=== PATIENT | female | born 2000 | race Caucasian/White ===

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

== ENCOUNTER 2019-09-07 11:15 | Observation (INO) | payer MEDICAID ==
[2019-09-08] MEDS ORDERED: PREN-96 PO (13:59)
== END 2019-09-07 13:35 | disposition home or self-care (01) | DRG 566 ==
LOC: LDRP 11:15
PROVIDERS: ADMIT Specialist; ATTEND Specialist
DX: O24.410 Gestational diabetes mellitus in pregnancy, diet controlled (principal); Z3A.37 37 weeks gestation of pregnancy
CPT/HCPCS: 51702; 59025; 81002; 82948; 82962; G0378

== ENCOUNTER 2019-09-14 11:36 | Observation (INO) | payer MEDICAID ==
[~2019-09-14 11:36] MED LIST: PREN-96 PO
== END 2019-09-14 12:50 | disposition home or self-care (01) | DRG 566 ==
LOC: LDRP 11:36
PROVIDERS: ADMIT Obstetrics & Gynecology; ATTEND Obstetrics & Gynecology
DX: O24.419 Gestational diabetes mellitus in pregnancy, unspecified control (principal); O36.8330 Maternal care for abnormalities of the fetal heart rate or rhythm, third trimester, not applicable or unspecified; Z3A.38 38 weeks gestation of pregnancy
CPT/HCPCS: 59025; 76818; 81002; 82948; 82962; G0378

== ENCOUNTER 2019-09-21 11:54 | Observation (INO) | payer MEDICAID | END 2019-09-21 14:00 | disposition home or self-care (01) | DRG 566 | LOC: LDRP 11:54 | PROVIDERS: ADMIT Obstetrics & Gynecology; ATTEND Obstetrics & Gynecology | DX: O24.410 Gestational diabetes mellitus in pregnancy, diet controlled (principal); Z3A.39 39 weeks gestation of pregnancy | CPT/HCPCS: 59025; 76818; 81002; 82948; 82962; G0378 ==

== ENCOUNTER 2019-09-28 19:00 | Inpatient (IN) | payer MEDICAID ==
[~2019-09-28] VITALS: Ht 162.6 cm; Wt 114.3 kg
[2019-09-28] MEDS ORDERED: LACT. RINGERS/OXYTOCIN 20UNITS 1,000 ML IV SCH (19:06)
[2019-09-28] MEDS ORDERED: LIDOCAINE 2%HCL (LOCAL ANESTH.) INJ 20ML MDV IJ ONE (19:15)
[2019-09-28] MEDS ORDERED: METHYLERGONOVINE MALEATE 0.2 MG/ML AMP IM PRN (19:15)
[2019-09-28] MEDS ORDERED: PENICILLIN G POT 5MIL/D5 50ML 50 ML IV ONE (19:15)
[2019-09-28] MEDS ORDERED: PHISODERM TOP SOLN 240ML BTL TOP PRN (19:15)
[2019-09-28 20:06] LABS: Basophils # (auto) 0 uL; Basophils % (auto) 0.3 % (0.0-2.0); Eosinophils # (auto) 0.1 uL; Monocytes # (auto) 0.9 uL; Nucleated Red Blood Cells % 0.1 %
[2019-09-28 20:07] LABS: Urine Bacteria FEW /hpf (None Seen); Urine Blood 1+ /uL (Negative); Urine Mucus FEW (None Seen); Urine WBC 5 /hpf (0 - 5)
[2019-09-28 20:08] LABS: Eosinophils % (auto) 0.7 % (0.0-7.0); Hematocrit 25.4 % (36.0-46.0); Hemoglobin 8.1 g/dL (12.2-16.2); Lymphocytes # (auto) 1.8 uL; Lymphocytes % (auto) 13.6 % (10.0-50.0); Mean Corpuscular Hemoglobin 22.9 pg (28.0-32.0); Mean Corpuscular Hgb Conc. 31.7 g/dL (32.0-36.0); Mean Corpuscular Volume 72.2 fL (80.0-100.0); Monocytes % (auto) 6.8 % (0.0-12.0); Neutrophils # (auto) 10.3 uL; Neutrophils % (auto) 78.6 % (37.0-80.0); Platelet Count (auto) 272 10^3/uL (140-450); Red Blood Cells 3.52 10^6/uL (4.0-5.20); Red Cell Distribution Width 17.1 % (11.8-14.3); White Blood Cell 13.1 10^3/uL (4.4-10.8)
[2019-09-28 20:20] LABS: INR 0.91 (0.9-1.15); Partial Thromboplastin Time 26.7 sec (23.64-32.05)
[2019-09-28 20:28] LABS: Albumin 2.4 g/dL (3.4-5.0); BUN/Creatinine Ratio 11.7; Calcium 8.4 mg/dL (8.5-10.1); Potassium 3.3 mmol/L (3.5-5.1)
[2019-09-28 20:31] LABS: Bilirubin, Total 0.4 mg/dL (0.2-1.0); Total Protein 6.7 g/dL (6.4-8.2)
[2019-09-28] MEDS: LACTATED RINGER'S 1,000 ML IV SCH (20:52)
[2019-09-29] MEDS: PENICILLIN G POTASSIUM 2,500,000 UNITS in D5W 5% 50 ML IV SCH ×3 (00:46→09:30)
[2019-09-29] MEDS: LACTATED RINGER'S 1,000 ML IV SCH ×2 (04:50→11:14)
[2019-09-29] MEDS ORDERED: PROMETHAZINE HCL 25 MG/ML 1ML IV PRN (10:30)
[2019-09-29] MEDS ORDERED: ePHEDrine SULFATE 50 MG/ML AMP ONE (13:29)
[2019-09-29] MEDS ORDERED: fentaNYL W ROPIVACAINE 150 ML EPI ONE (13:29)
[2019-09-29] MEDS ORDERED: BUTORPHANOL TARTRATE 2 MG/1 ML VIAL IV ONE (14:00)
[2019-09-29] MEDS ORDERED: PENICILLIN G POT 5MILLION UNIT VIAL ONE (16:17)
[2019-09-29] MEDS ORDERED: IBUPROFEN 600 MG TAB PO PRN (19:15)
[2019-09-29] MEDS: WITCH HAZEL-GLYCERIN PAD TOP PRN (20:05)
[2019-09-29] MEDS: DERMOPLAST 60ML BOTTLE TOP PRN (20:05)
[2019-09-29] MEDS ORDERED: AMMONIA 0.33 ML INHALANT IN ONE ×2 (21:08→21:30)
[2019-09-29 23:27] VITALS: BP 122/66
--- NOTE | 2019-09-30 01:45 | NUR ---
Received rport from JOVITA Pierson and assumed care of female pt
[2019-09-30 03:00] VITALS: BP 122/63
[2019-09-30 07:00] VITALS: BP 129/65
[2019-09-30 07:06] LABS: RPR Non Reactive (Non Reactive)
[2019-09-30] MEDS ORDERED: INFLUENZA QUAD 2019-2020 0.5ml SYRG IM SCH (08:00)
[2019-09-30] MEDS: DOCUSATE CALCIUM 240 MG CAP PO SCH (09:36)
[2019-09-30 11:30] VITALS: BP 122/65
[2019-09-30 15:00] VITALS: BP 125/74
[2019-09-30 23:00] VITALS: BP 109/61
--- NOTE | 2019-10-01 06:20 | NUR ---
Report received from Ja Alamo RN on stable pt. Assumed care. Addendum: 10/01/19 at 0637 by Nicole Mora RN Amended: Links added.
[2019-10-01 07:08] VITALS: BP 97/55
--- NOTE | 2019-10-01 07:50 | NUR ---
Dr. Mcdaniel makes rounds with this RN. Dr. Mcdaniel informed of recent VS, lab values, and pt states that when she stands her left foot swells up and gets tingly, but there is no pain and Anusha sign is negative. Edema noted bilaterally in both lower extremities, pt educated on elevating legs while in bed. Orders received for d/c home and to follow-up with Dr. Mcdaniel in 2 weeks, pt to continue taking Iron and PNV as directed, and pt to receive Potassium tablet 40 meq PO once prior to d/c home.
[2019-10-01] MEDS ORDERED: POTASSIUM CHL 20 Meq TABLET PO ONE (08:15)
[2019-10-01] MEDS: WITCH HAZEL-GLYCERIN PAD TOP PRN (08:38)
[2019-10-01] MEDS: DERMOPLAST 60ML BOTTLE TOP PRN (08:38)
[2019-10-01] MEDS: DOCUSATE CALCIUM 240 MG CAP PO SCH (09:50)
--- NOTE | 2019-10-01 10:20 | NUR ---
Discharge: Discharge instructions given as ordered. Pt encouraged to follow up with [facility]IA[facility] as instructed. All questions and concerns addressed. Patient verbalized understanding. Medication reconciliation completed and copy given to patient. All required/requested vaccines given and copies of vaccinations given to patient. Patient encouraged to prepare to depart unit.
[2019-10-01 11:02] VITALS: BP 114/63
--- NOTE | 2019-10-01 11:32 | NUR ---
Discharge: Patient ambulated with steady gait to vehicle, with all personal belongings, accompanied by staff and family member. No distress noted at time of departure, no adverse changes in status since initial assessment.
== END 2019-10-01 11:32 | disposition home or self-care (01) | DRG 560 ==
LOC: LDRP 19:00
PROVIDERS: ADMIT Obstetrics & Gynecology; ATTEND Obstetrics & Gynecology
PROC: 10E0XZZ Delivery of Products of Conception, External Approach (ICD-10-PCS; principal; 2019-09-29)
PROC: 0W8NXZZ Division of Female Perineum, External Approach (ICD-10-PCS; 2019-09-29)
PROC: 3E0R3BZ Introduction of Anesthetic Agent into Spinal Canal, Percutaneous Approach (ICD-10-PCS; 2019-09-29)
PROC: 00HU33Z Insertion of Infusion Device into Spinal Canal, Percutaneous Approach (ICD-10-PCS; 2019-09-29)
DX: O99.824 Streptococcus B carrier state complicating childbirth (principal); O24.420 Gestational diabetes mellitus in childbirth, diet controlled; J45.909 Unspecified asthma, uncomplicated; O36.63X0 Maternal care for excessive fetal growth, third trimester, not applicable or unspecified; O99.52 Diseases of the respiratory system complicating childbirth; O69.81X0 Labor and delivery complicated by cord around neck, without compression, not applicable or unspecified; Z3A.40 40 weeks gestation of pregnancy; Z37.0 Single live birth
CPT/HCPCS: 36415; 51702; 59025; 59409; 62282; 80053; 81001; 82948; 82962; 84112; 85025; 85610; 85730; 86592; 86850; 86900; 86901; 96365; 96366; 96372; 96374; G0378; J2540; J2590; J3010; J7060

== ENCOUNTER 2021-07-30 10:40 | Observation (INO) | payer MEDICAID ==
[~2021-07-30] VITALS: Ht 160 cm; Wt 101.2 kg
[2021-07-30 11:14] LABS: Basophils # (auto) 0.1 10 ^3/uL (0-0.2); Hemoglobin 7.4 g/dL (12.2-16.2); Nucleated Red Blood Cells % 0.1 %
[2021-07-30 11:16] LABS: Basophils % (auto) 0.7 % (0.0-2.0); Eosinophils # (auto) 0.1 10 ^3/uL (0-0.8); Eosinophils % (auto) 1.3 % (0.0-7.0); Hematocrit 22.9 % (36.0-46.0); Lymphocytes % (auto) 18.6 % (10.0-50.0); Mean Corpuscular Hemoglobin 22.1 pg (28.0-32.0); Mean Corpuscular Hgb Conc. 32.3 g/dL (32.0-36.0); Mean Corpuscular Volume 68.3 fL (80.0-100.0); Monocytes # (auto) 0.6 10 ^3/uL (0-1.3); Monocytes % (auto) 5.6 % (0.0-12.0); Neutrophils % (auto) 73.8 % (37.0-80.0); Red Blood Cells 3.35 10^6/uL (4.0-5.20); White Blood Cell 10.8 10^3/uL (4.4-10.8)
[2021-07-30 12:58] VITALS: BP 104/58
[2021-07-30 13:14] VITALS: BP 106/51
[2021-07-30] MEDS ORDERED: NIFEdipine 10 MG CAP PO ONE (13:20)
[2021-07-30] MEDS ORDERED: BETAMETHASONE ACET (30mg/5ml) 5ml Vial 6mg/ml IM ONE (13:30)
[2021-07-30] MEDS ORDERED: FERR-7 PO (15:31)
[2021-07-30 15:55] VITALS: BP 112/61
[2021-07-31 05:08] LABS: RPR Non Reactive (Non Reactive)
[2021-07-31] MEDS ORDERED: ALBU108A5 IN ×2 (19:37)
== END 2021-07-30 17:00 | disposition home or self-care (01) ==
LOC: LDRP 10:40
PROVIDERS: ADMIT Obstetrics & Gynecology; ATTEND Obstetrics & Gynecology
DX: O99.013 Anemia complicating pregnancy, third trimester (principal); O60.03 Preterm labor without delivery, third trimester; D64.9 Anemia, unspecified; Z3A.35 35 weeks gestation of pregnancy
CPT/HCPCS: 36415; 36430; 59025; 76815; 81002; 82948; 82962; 83036; 85025; 86592; 86850; 86900; 86901; 86920; 94760; 96372; G0378; G0379; J0702; J7050; P9016

== ENCOUNTER 2021-07-31 19:19 | Observation (INO) | payer MEDICAID ==
[~2021-07-31] VITALS: Ht 30.5 cm; Wt 0.5 kg
[~2021-07-31 19:19] MED LIST changes: +FERR-7 PO
[2021-07-31] MEDS ORDERED: BETAMETHASONE ACET (30mg/5ml) 5ml Vial 6mg/ml IM ONE (19:30)
[2021-07-31] MEDS ORDERED: ALBU108A5 IN ×2 (19:37)
[2021-07-31 19:57] LABS: Basophils # (auto) 0.1 10 ^3/uL (0-0.2); Basophils % (auto) 0.4 % (0.0-2.0); Eosinophils # (auto) 0 10 ^3/uL (0-0.8); Hemoglobin 7.7 g/dL (12.2-16.2); Lymphocytes # (auto) 1.5 10 ^3/uL (0.4-5.4); Nucleated Red Blood Cells % 0.1 %
[2021-07-31 19:58] LABS: Eosinophils % (auto) 0.1 % (0.0-7.0); Hematocrit 23.7 % (36.0-46.0); Lymphocytes % (auto) 10.7 % (10.0-50.0); Mean Corpuscular Hgb Conc. 32.6 g/dL (32.0-36.0); Mean Corpuscular Volume 70.5 fL (80.0-100.0); Monocytes # (auto) 1.1 10 ^3/uL (0-1.3); Monocytes % (auto) 8.3 % (0.0-12.0); Neutrophils % (auto) 80.5 % (37.0-80.0); Red Blood Cells 3.36 10^6/uL (4.0-5.20); Red Cell Distribution Width 18.8 % (11.8-14.3); White Blood Cell 13.6 10^3/uL (4.4-10.8)
[2021-07-31] MEDS ORDERED: LACTATED RINGER'S 1,000 ML IV SCH (20:00)
[2021-07-31] MEDS ORDERED: SODIUM FERR GLUC 62.5MG/5ML 125 MG in SODIUM CHL 0.9% 100 ML IV ONE (20:15)
== END 2021-07-31 23:37 | disposition home or self-care (01) ==
LOC: LDRP 19:19
PROVIDERS: ADMIT Obstetrics & Gynecology; ATTEND Obstetrics & Gynecology
DX: O60.03 Preterm labor without delivery, third trimester (principal); O99.323 Drug use complicating pregnancy, third trimester; F12.90 Cannabis use, unspecified, uncomplicated; Z3A.35 35 weeks gestation of pregnancy
CPT/HCPCS: 36415; 59025; 81002; 85025; 96361; 96365; 96372; G0378; G0379; J2916; J7030; 96360

== ENCOUNTER 2021-08-01 19:14 | Observation (INO) | payer MEDICAID ==
[~2021-08-01] VITALS: Ht 160 cm; Wt 101.2 kg
[~2021-08-01 19:14] MED LIST changes: +ALBU108A5 IN
[2021-08-01] MEDS ORDERED: SODIUM FERR GLUC 62.5MG/5ML 125 MG in SODIUM CHL 0.9% 100 ML IV ONE (19:45)
[2021-08-02] MEDS ORDERED: CEPH-322 PO ×2 (21:52)
== END 2021-08-01 22:14 | disposition home or self-care (01) ==
LOC: LDRP 19:14
PROVIDERS: ADMIT Obstetrics & Gynecology; ATTEND Obstetrics & Gynecology
DX: O99.013 Anemia complicating pregnancy, third trimester (principal); D64.9 Anemia, unspecified; O26.893 Other specified pregnancy related conditions, third trimester; R10.2 Pelvic and perineal pain; O99.323 Drug use complicating pregnancy, third trimester; F12.90 Cannabis use, unspecified, uncomplicated; Z3A.35 35 weeks gestation of pregnancy
CPT/HCPCS: 59025; 81002; 96365; G0378; G0379; J2916

== ENCOUNTER 2021-08-02 19:44 | Observation (INO) | payer MEDICAID ==
[2021-08-02] MEDS ORDERED: SODIUM FERR GLUC 62.5MG/5ML 125 MG in SODIUM CHL 0.9% 100 ML IV ONE (20:00)
[2021-08-02 21:31] LABS: Hemoglobin 8.1 g/dL (12.2-16.2); Red Cell Distribution Width 19.3 % (11.8-14.3)
[2021-08-02 21:33] LABS: Hematocrit 25.7 % (36.0-46.0); Mean Corpuscular Hemoglobin 22.4 pg (28.0-32.0); Mean Corpuscular Hgb Conc. 31.5 g/dL (32.0-36.0); Mean Corpuscular Volume 71.1 fL (80.0-100.0); Red Blood Cells 3.62 10^6/uL (4.0-5.20); White Blood Cell 14.6 10^3/uL (4.4-10.8)
[2021-08-02] MEDS ORDERED: CEPH-322 PO ×2 (21:52)
[2021-08-02 21:57] LABS: Basophils % (manual) 0 (0.0-2.0); Blast Cells 0; Eosinophils % (manual) 0 (0-7); Metamyelocytes % 0; Promyelocytes % 0; Reactive Lymphocytes 0
[2021-08-02 22:19] LABS: Band Neutrophils % (manual) 2; Lymphocytes % (manual) 21 (10.0-50.0); Monocytes % (manual) 5 (0-12); Myelocytes % 4
== END 2021-08-02 22:17 | disposition home or self-care (01) ==
LOC: LDRP 19:44
PROVIDERS: ADMIT Obstetrics & Gynecology; ATTEND Obstetrics & Gynecology
DX: O99.013 Anemia complicating pregnancy, third trimester (principal); D64.9 Anemia, unspecified; O99.323 Drug use complicating pregnancy, third trimester; F12.90 Cannabis use, unspecified, uncomplicated; Z3A.35 35 weeks gestation of pregnancy
CPT/HCPCS: 36415; 59025; 81002; 85007; 85027; 96360; 96361; G0378; G0379; J2916

== ENCOUNTER 2021-09-04 14:47 | Observation (INO) | payer MEDICAID ==
[~2021-09-04 14:47] MED LIST changes: +CEPH-322 PO
== END 2021-09-04 16:35 | disposition home or self-care (01) ==
LOC: LDRP 14:47
PROVIDERS: ADMIT Obstetrics & Gynecology; ATTEND Obstetrics & Gynecology
DX: O48.0 Post-term pregnancy (principal); O62.9 Abnormality of forces of labor, unspecified; Z3A.40 40 weeks gestation of pregnancy
CPT/HCPCS: 59025; 76818; 81002; 94760; G0378

== ENCOUNTER 2021-09-06 07:15 | Inpatient (IN) | payer MEDICAID ==
[~2021-09-06] VITALS: Ht 160 cm; Wt 105.7 kg
[2021-09-06] MEDS ORDERED: miSOPROStol 100 mcg TAB PO ONE (12:32)
[2021-09-06] MEDS ORDERED: TRANEXAMIC ACID 1,000 mg/10ml INJ VIAL IV ONE (12:32)
[2021-09-06] MEDS ORDERED: LACT. RINGERS/OXYTOCIN 20UNITS 1,000 ML IV ONE (12:51)
[2021-09-06] MEDS ORDERED: LIDOCAINE 2%HCL (LOCAL ANESTH.) INJ 20ML MDV ONE ×2 (12:51→13:22)
[2021-09-06] MEDS ORDERED: PENICILLIN G POT 5MIL/D5 50ML 0 ML IV ONE (12:51)
[2021-09-06] MEDS ORDERED: METHYLERGONOVINE MALEATE 0.2 MG/ML AMP IM ONE (12:52)
[2021-09-06] MEDS ORDERED: LIDOCAINE 2%HCL (LOCAL ANESTH.) INJ 20ML MDV IJ PRN (13:15)
[2021-09-06] MEDS ORDERED: PHISODERM TOP SOLN 240ML BTL TOP PRN (13:15)
[2021-09-06] MEDS ORDERED: LACT. RINGERS/OXYTOCIN 20UNITS 500 ML IV ONE ×2 (13:15→13:45)
[2021-09-06] MEDS: CARBOPROST TROMETHAMINE 250 MCG/1ML VIAL IM PRN ×2 (13:21→15:37)
[2021-09-06] MEDS ORDERED: miSOPROStol 100 mcg TAB SL PRN (13:30)
[2021-09-06] MEDS ORDERED: ONDANSETRON HCL 4 MG/2 ML VIAL IV PRN (13:30)
[2021-09-06] MEDS ORDERED: METHYLERGONOVINE MALEATE 0.2 MG/ML AMP IM PRN (13:30)
[2021-09-06] MEDS ORDERED: DIPHENOXYLATE W/ATROPINE 2.5 MG TAB PO ONE (13:30)
[2021-09-06] MEDS ORDERED: TRANEXAMIC ACID 1,000 MG in SODIUM CHL 0.9% 100 ML IV ONE (13:30)
[2021-09-06] MEDS ORDERED: miSOPROStol 100 mcg TAB PR PRN (13:30)
[2021-09-06] MEDS ORDERED: CARBOPROST TROMETHAMINE 250 MCG/1ML VIAL IM ONE (13:34)
[2021-09-06 13:57] LABS: Basophils # (auto) 0.1 10 ^3/uL (0-0.2); Basophils % (auto) 0.4 % (0.0-2.0); Eosinophils # (auto) 0 10 ^3/uL (0-0.8); Eosinophils % (auto) 0.1 % (0.0-7.0); Lymphocytes # (auto) 0.9 10 ^3/uL (0.4-5.4)
[2021-09-06 13:59] LABS: Lymphocytes % (auto) 5.6 % (10.0-50.0); Mean Corpuscular Hgb Conc. 32.3 g/dL (32.0-36.0); Mean Corpuscular Volume 74.3 fL (80.0-100.0); Monocytes # (auto) 0.6 10 ^3/uL (0-1.3); Monocytes % (auto) 3.9 % (0.0-12.0); Neutrophils # (auto) 14.5 10 ^3/uL (1.6-8.6); Nucleated Red Blood Cells % 0.2 %; Red Blood Cells 3.76 10^6/uL (4.0-5.20); White Blood Cell 16.1 10^3/uL (4.4-10.8)
[2021-09-06 14:03] LABS: Red Cell Distribution Width 25.2 % (11.8-14.3)
[2021-09-06 14:10] LABS: INR 0.93 (0.9-1.15); Partial Thromboplastin Time 28.5 sec (23.6-33.0)
[2021-09-06 14:14] LABS: Albumin 2.5 g/dL (3.4-5.0); Calcium 8.2 mg/dL (8.5-10.1)
[2021-09-06 14:17] LABS: Urine Bacteria NONE SEEN /hpf (None Seen); Urine Blood 3+ /uL (Negative); Urine Mucus FEW (None Seen); Urine Specific Gravity 1.026 (1.001-1.035); Urine WBC 1 /hpf (0 - 5)
[2021-09-06 14:27] LABS: Bilirubin, Total 0.4 mg/dL (0.2-1.0); Total Protein 6.6 g/dL (6.4-8.2)
[2021-09-06 14:31] LABS: Potassium 2.9 mmol/L (3.5-5.1)
[2021-09-06 14:49] LABS: Alcohol, Urine < 3.0 mg/dL (0-10); Amphetamine Screen, Urine NEGATIVE (NEGATIVE); Barbiturate Scree,Urine NEGATIVE (NEGATIVE); Benzodiazephine Screen, Urine NEGATIVE (NEGATIVE); Cannabinoid Screen, Urine NEGATIVE (NEGATIVE); Cocaine Screen, Urine NEGATIVE (NEGATIVE); Opiate Scree,Urine NEGATIVE (NEGATIVE); Phencyclidine Screen, Urine NEGATIVE (NEGATIVE)
[2021-09-06] MEDS: LACTATED RINGER'S 1,000 ML IV SCH ×2 (16:14→18:41)
[2021-09-06 17:09] LABS: Hematocrit 34.4 % (36.0-46.0); Hemoglobin 11.5 g/dL (12.2-16.2); Mean Corpuscular Hemoglobin 26.3 pg (28.0-32.0); Mean Corpuscular Hgb Conc. 33.4 g/dL (32.0-36.0); Mean Corpuscular Volume 78.7 fL (80.0-100.0); Red Blood Cells 4.37 10^6/uL (4.0-5.20); White Blood Cell 26.8 10^3/uL (4.4-10.8)
[2021-09-06 17:13] LABS: Red Cell Distribution Width 23.1 % (11.8-14.3)
[2021-09-06 17:16] LABS: Basophils % (manual) 0 (0.0-2.0); Blast Cells 0; Eosinophils % (manual) 0 (0-7); INR 0.95 (0.9-1.15); Metamyelocytes % 0; Myelocytes % 0; Partial Thromboplastin Time 30.2 sec (23.6-33.0); Promyelocytes % 0; Reactive Lymphocytes 0
[2021-09-06] MEDS: ceFAZolin 1GM/50ML 50 ML IV SCH (17:24)
[2021-09-06] MEDS: DERMOPLAST 60ML BOTTLE TOP PRN (17:24)
[2021-09-06] MEDS: WITCH HAZEL-GLYCERIN PAD TOP PRN (17:24)
[2021-09-06 17:26] LABS: Calcium 7.9 mg/dL (8.5-10.1); Potassium 3.4 mmol/L (3.5-5.1)
[2021-09-06 17:32] LABS: Albumin 2.2 g/dL (3.4-5.0); BUN/Creatinine Ratio 13.7; Bilirubin, Total 0.8 mg/dL (0.2-1.0); Total Protein 5.9 g/dL (6.4-8.2)
[2021-09-06 19:00] VITALS: BP 120/60
[2021-09-06] MEDS: ACETAMINOPHEN 325 MG TAB PO PRN (19:02)
[2021-09-06 21:10] LABS: Band Neutrophils % (manual) 3; Lymphocytes % (manual) 3 (10.0-50.0); Monocytes % (manual) 5 (0-12)
[2021-09-06 23:27] VITALS: BP 108/61
[2021-09-07] MEDS: ceFAZolin 1GM/50ML 50 ML IV SCH ×3 (00:55→17:37)
[2021-09-07 03:15] VITALS: BP 108/59
[2021-09-07 06:40] LABS: Basophils # (auto) 0 10 ^3/uL (0-0.2); Basophils % (auto) 0.2 % (0.0-2.0); Eosinophils # (auto) 0 10 ^3/uL (0-0.8); Eosinophils % (auto) 0.1 % (0.0-7.0); Lymphocytes # (auto) 1.9 10 ^3/uL (0.4-5.4)
[2021-09-07 06:42] LABS: Hematocrit 23.8 % (36.0-46.0); Hemoglobin 8.2 g/dL (12.2-16.2); Lymphocytes % (auto) 11.6 % (10.0-50.0); Mean Corpuscular Hemoglobin 26.8 pg (28.0-32.0); Mean Corpuscular Hgb Conc. 34.5 g/dL (32.0-36.0); Mean Corpuscular Volume 77.7 fL (80.0-100.0); Monocytes # (auto) 1.7 10 ^3/uL (0-1.3); Monocytes % (auto) 10.7 % (0.0-12.0); Neutrophils # (auto) 12.5 10 ^3/uL (1.6-8.6); Neutrophils % (auto) 77.4 % (37.0-80.0); Red Blood Cells 3.06 10^6/uL (4.0-5.20); Red Cell Distribution Width 22.9 % (11.8-14.3); White Blood Cell 16.1 10^3/uL (4.4-10.8)
[2021-09-07 07:06] LABS: RPR Non Reactive (Non Reactive)
[2021-09-07 07:30] VITALS: BP 98/62
[2021-09-07] MEDS: ACETAMINOPHEN 325 MG TAB PO PRN (10:14)
[2021-09-07 11:30] VITALS: BP 99/58
[2021-09-07 14:30] VITALS: BP 121/58
[2021-09-07 18:01] LABS: Basophils # (auto) 0 10 ^3/uL (0-0.2); Eosinophils # (auto) 0 10 ^3/uL (0-0.8); Eosinophils % (auto) 0.3 % (0.0-7.0); Lymphocytes # (auto) 2.2 10 ^3/uL (0.4-5.4); Monocytes # (auto) 0.9 10 ^3/uL (0-1.3); Monocytes % (auto) 7.5 % (0.0-12.0); Neutrophils # (auto) 9.3 10 ^3/uL (1.6-8.6); White Blood Cell 12.5 10^3/uL (4.4-10.8)
[2021-09-07 18:02] LABS: Basophils % (auto) 0.2 % (0.0-2.0); Lymphocytes % (auto) 17.4 % (10.0-50.0); Mean Corpuscular Hemoglobin 25.9 pg (28.0-32.0); Mean Corpuscular Hgb Conc. 33.2 g/dL (32.0-36.0); Mean Corpuscular Volume 78.1 fL (80.0-100.0); Neutrophils % (auto) 74.6 % (37.0-80.0); Nucleated Red Blood Cells % 0.1 %; Red Blood Cells 3.07 10^6/uL (4.0-5.20); Red Cell Distribution Width 23.1 % (11.8-14.3)
[2021-09-07 18:13] LABS: Calcium 7.8 mg/dL (8.5-10.1); Potassium 3.6 mmol/L (3.5-5.1)
[2021-09-07 18:18] LABS: BUN/Creatinine Ratio 11.5; Bilirubin, Total 0.2 mg/dL (0.2-1.0); Total Protein 5.2 g/dL (6.4-8.2)
[2021-09-07 19:30] VITALS: BP 109/69
[2021-09-07 23:30] VITALS: BP 110/70
[2021-09-08] MEDS: ceFAZolin 1GM/50ML 50 ML IV SCH ×3 (00:53→09:03)
[2021-09-08 03:00] VITALS: BP 98/56
[2021-09-08 06:30] VITALS: BP 104/58
[2021-09-08] MEDS ORDERED: INFLUENZA QUAD 2021-2022 0.5 ML SYRG IM ONE (08:15)
[2021-09-08] MEDS: DERMOPLAST 60ML BOTTLE TOP PRN (11:13)
[2021-09-08] MEDS: WITCH HAZEL-GLYCERIN PAD TOP PRN (11:13)
[2021-09-08 11:15] VITALS: BP 113/69
== END 2021-09-08 12:15 | disposition home or self-care (01) | DRG 560 ==
LOC: LDRP 12:42 → OBSVTOIN 12:43
PROVIDERS: ADMIT Obstetrics & Gynecology; ATTEND Obstetrics & Gynecology
PROC: 10E0XZZ Delivery of Products of Conception, External Approach (ICD-10-PCS; principal; 2021-09-06)
PROC: 0KQM0ZZ Repair Perineum Muscle, Open Approach (ICD-10-PCS; 2021-09-06)
PROC: 3E0DXGC Introduction of Other Therapeutic Substance into Mouth and Pharynx, External Approach (ICD-10-PCS; 2021-09-06)
PROC: 30233N1 Transfusion of Nonautologous Red Blood Cells into Peripheral Vein, Percutaneous Approach (ICD-10-PCS; 2021-09-06)
DX: O36.63X0 Maternal care for excessive fetal growth, third trimester, not applicable or unspecified (principal); Z37.0 Single live birth; O72.1 Other immediate postpartum hemorrhage; O70.1 Second degree perineal laceration during delivery; Z3A.40 40 weeks gestation of pregnancy; Z91.018 Allergy to other foods; Z20.822 Contact with and (suspected) exposure to COVID-19
CPT/HCPCS: 36415; 59025; 59409; 80053; 80307; 81001; 81002; 85007; 85025; 85027; 85610; 85730; 86592; 86850; 86900; 86901; 86920; 87426; 90686; 94760; 96360; 96361; 96365; 96366; 96372; 96374; G0378; J0690; J2405; J2540; J2590